=== PATIENT | female | born 1990 | race Caucasian/White ===

== ENCOUNTER 2016-09-14 19:32 | Emergency (ER) | payer OTHER, MEDICAID ==
[2016-09-14 19:51] VITALS: BP 133/80; PULSE 87; RESP 16; TEMP 98.2
[2016-09-14] MEDS ORDERED: IBUPROFEN 600 MG STARTER PACK 4 TAB BTL PO STA (19:51)
--- NOTE | 2016-09-14 20:05 | ED ---
Upper Extremity HPI - General Chief Complaint: Extremity Injury, Upper Stated Complaint: L Wrist Pain - [facility] Time Seen by Provider: 09/14/16 19:40 Source: patient, RN notes reviewed, old records reviewed Mode of arrival: ambulatory Limitations: no limitations - History of Present Illness Initial Comments: Patient is a 26 year old female chief complaint of left wrist pain after tripping over a power cord and falling on outstretched hand. Patient reports that this occurred earlier this afternoon. She reports that the pain mainly started over her thumb area and now she's noticed increased swelling. She states that she has pain with gripping from her left hand. She is left-handed. She denies any peripheral paresthesias. She denies any previous fractures or injuries to the hand. Patient reports that there is difficulty flexing and extension of the wrist due to the swelling and pain.Patient denies any recent fever, chills, shortness of breath, chest pain, back pain, abdominal pain, nausea vomiting, numbness or tingling, dysuria or hematuria, constipation or diarrhea, headaches or visual changes, or any other current symptoms - Related Data Allergies Allergy/AdvReac Type Severity Reaction Status Date / Time No Known Allergies Allergy Verified 09/14/16 19:43 Review of Systems ROS Statement: Those systems with pertinent positive or pertinent negative responses have been documented in the HPI. ROS Other: All systems not noted in ROS Statement are negative. Past Medical History Past Medical History: No Reported History History of Any Multi-Drug Resistant Organisms: None Reported Past Surgical History: No Surgical Hx Reported Past Anesthesia/Blood Transfusion Reactions: No Reported Reaction Past Psychological History: No Psychological Hx Reported Smoking Status: Never smoker Past Alcohol Use History: Rare Past Drug Use History: None Reported - Past Family History Mother Family Medical History: Hypertension, Osteoarthritis (OA) General Exam - General Exam Comments Initial Comments: Pleasant 26-year-old female. No acute distress. Limitations: no limitations General appearance: alert, in no apparent distress Head exam: Present: atraumatic, normocephalic, normal inspection Eye exam: Present: normal appearance, PERRL, EOMI. Absent: scleral icterus, conjunctival injection, periorbital swelling ENT exam: Present: normal exam, mucous membranes moist Neck exam: Present: normal inspection. Absent: tenderness, meningismus, lymphadenopathy Respiratory exam: Present: normal lung sounds bilaterally. Absent: respiratory distress, wheezes, rales, rhonchi, stridor Cardiovascular Exam: Present: regular rate, normal rhythm, normal heart sounds. Absent: systolic murmur, diastolic murmur, rubs, gallop, clicks GI/Abdominal exam: Present: soft, normal bowel sounds. Absent: distended, tenderness, guarding, rebound, rigid Extremities exam: Present: normal inspection, normal capillary refill. Absent: full ROM, tenderness, pedal edema, joint swelling, calf tenderness Left Shoulder Exam: Present: normal inspection, full ROM Upper Arm exam: Present: normal inspection, full ROM Elbow exam: Present: normal inspection, full ROM Forearm Wrist exam: Present: tenderness, swelling (over distal radius and snuff box ), tenderness over anatomical snuff box. Absent: normal inspection ( Significant swelling over the distal wrist. Patient is tender over the anatomical snuffbox.), full ROM Hand Wrist exam: Present: normal inspection. Absent: full ROM, tenderness, swelling Neuro motor exam: Present: wrist extension intact, thumb IP flexion intact. Absent: thumb opposition intact (patient is unable to oppose the person fifth digit. She is able to oppose second through fourth digit.) Neurosensory exam: Present: 2-point discrimination Vascular: Present: normal capillary refill Back exam: Present: normal inspection Neurological exam: Present: alert, oriented X3, CN II-XII intact Psychiatric exam: Present: normal affect, normal mood Skin exam: Present: warm, dry, intact, normal color. Absent: rash Course Vital Signs 09/14/16 19:40 Temperature 98.2 F Pulse Rate 87 Respiratory 16 Rate Blood Pressure 133/80 O2 Sat by Pulse 98 Oximetry Procedures - Orthopedic Splinting/Casting Injury #1 Side: left Upper Extremity Injury Location: wrist Upper Extremity Immobilizer: thumb spica Medical Decision Making - Medical Decision Making Patient is a 26 year old female chief complaint of left wrist pain after tripping over a power cord and falling on outstretched hand. Patient reports that this occurred earlier this afternoon. She reports that the pain mainly started over her thumb area and now she's noticed increased swelling. She states that she has pain with gripping from her left hand. She is left-handed. She denies any peripheral paresthesias. She denies any previous fractures or injuries to the hand. Patient reports that there is difficulty flexing and extension of the wrist due to the swelling and pain. X-rays are reviewed and show no evidence of acute fracture. Patient has significant only tender over the anatomical snuffbox and there is swelling. Patient does have difficulty with thumb opposition of the first and fifth finger. Probable ulna collateral ligamentous tear. Patient was placed in a thumb spica splint. I did advise her to follow-up with orthopedic and take Motrin or Tylenol for pain. Patient agrees with treatment plan will comply. Return parameters were discussed. Disposition Clinical Impression: Left wrist injury Disposition: HOME SELF-CARE Condition: Good Instructions: Wrist Injury (ED), Scaphoid Fracture (ED) Additional Instructions: Rest, ice, and elevate extremity. Keep splint on until cleared by orthopedics in approximately one week. Return to the emergency department if any alarming signs or symptoms occur. Referrals: Essie Henderson MD [STAFF PHYSICIAN] - 1-2 days Benito Richardson DO [Doctor of Osteopathic Medicine] - 1-2 days Time of Disposition: 20:17
--- NOTE | 2016-09-14 20:15 | XR ---
EXAMINATION TYPE: XR hand complete LT DATE OF EXAM: 09/14/2016 8:09 PM COMPARISON: NONE HISTORY: Hand and wrist pain TECHNIQUE: 3 views FINDINGS: I see no fracture nor dislocation. Carpal bones are intact. Metacarpals appear intact. IMPRESSION: Negative left hand exam.
--- NOTE | 2016-09-14 20:16 | XR ---
EXAMINATION TYPE: XR wrist complete LT DATE OF EXAM: 09/14/2016 8:09 PM COMPARISON: NONE HISTORY: Hyperextension injury pain TECHNIQUE: 4 views FINDINGS: I see no fracture nor dislocation. Carpal bones appear intact. Scaphoid appears normal. IMPRESSION: Normal left wrist.
== END 2016-09-14 20:33 | disposition home or self-care (01) ==
LOC: EC 19:32
DX: S69.92XA Unspecified injury of left wrist, hand and finger(s), initial encounter (principal); W01.0XXA Fall on same level from slipping, tripping and stumbling without subsequent striking against object, initial encounter; Y99.0 Civilian activity done for income or pay
CPT/HCPCS: 29125; 99284

== ENCOUNTER 2018-01-06 00:10 | Emergency (ER) | payer MEDICAID ==
[2018-01-06] MEDS ORDERED: KETOTIFEN 0.025% OPHTH DROPS 5 ML BTL BOTH EYES STA (02:34)
[2018-01-06] MEDS ORDERED: LORATADINE 10 MG TAB PO STA (02:35)
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
[2018-01-06 02:53] VITALS: BP 145/64; PULSE 66; RESP 20; TEMP 98.1
== END 2018-01-06 02:55 | disposition home or self-care (01) ==
LOC: EC 00:10
DX: H10.13 Acute atopic conjunctivitis, bilateral (principal)
CPT/HCPCS: 99283

== ENCOUNTER 2018-03-22 08:25 | Emergency (ER) | payer MEDICAID ==
--- NOTE | 2018-03-22 09:04 | ED ---
Female Urogenital HPI - General Chief complaint: Vaginal Bleeding Stated complaint: AND BLEEDING Time Seen by Provider: 03/22/18 08:35 Source: patient, RN notes reviewed Mode of arrival: ambulatory Limitations: no limitations - History of Present Illness Initial comments: This a 27-year-old female presents emergency Department chief complaint of vaginal bleeding in early . Patient states that she is G3 A2 A0 states that she is currently 6 weeks . 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 She states initially she had some light bleeding was not concerned she had this with her last though she started passing large amount of blood yesterday and a few clots. She states she has mild bleeding today and minimal cramping. She denies any diarrhea constipation. She has no dysuria no noted urinary frequency. Last Menstrual Period: 02/01/18 - Related Data Home Medications Medication Instructions Recorded Confirmed No Known Home Medications 03/22/18 03/22/18 Allergies Allergy/AdvReac Type Severity Reaction Status Date / Time No Known Allergies Allergy Verified 03/22/18 08:44 Review of Systems ROS Statement: Those systems with pertinent positive or pertinent negative responses have been documented in the HPI. ROS Other: All systems not noted in ROS Statement are negative. Past Medical History Past Medical History: No Reported History History of Any Multi-Drug Resistant Organisms: None Reported Past Surgical History: No Surgical Hx Reported Past Anesthesia/Blood Transfusion Reactions: No Reported Reaction Past Psychological History: No Psychological Hx Reported Smoking Status: Never smoker Past Alcohol Use History: None Reported Past Drug Use History: None Reported - Past Family History Mother Family Medical History: Hypertension, Osteoarthritis (OA) General Exam Limitations: no limitations General appearance: alert, in no apparent distress Respiratory exam: Present: normal lung sounds bilaterally. Absent: respiratory distress, wheezes, rales, rhonchi, stridor Cardiovascular Exam: Present: regular rate, normal rhythm, normal heart sounds. Absent: systolic murmur, diastolic murmur, rubs, gallop, clicks GI/Abdominal exam: Present: soft, normal bowel sounds. Absent: distended, tenderness, guarding, rebound, rigid Back exam: Absent: CVA tenderness (R), CVA tenderness (L) Skin exam: Present: warm, dry, intact, normal color. Absent: rash Course Vital Signs 10/11/18 10/11/18 08:31 10:16 Temperature 98.5 F 98.4 F Pulse Rate 62 56 L Respiratory 18 17 Rate Blood Pressure 131/78 130/60 O2 Sat by Pulse 100 98 Oximetry Medical Decision Making - Medical Decision Making 27-year-old female presented emergency from for vaginal bleeding early . Patient states that she took multiple tests at home which are positive. Patient has hCG less than 2.4 emergency department. Also was performed which shows no acute process. Patient currently is having menstrual cycle. Patient will be discharged return parameters discussed. - Lab Data Result diagrams: 03/22/18 09:04 Lab Results 03/22/18 03/22/18 03/22/18 Range/Units 09:04 09:04 09:04 WBC 6.8 (3.8-10.6) k/uL RBC 4.58 (3.80-5.40) m/uL Hgb 12.9 (11.4-16.0) gm/dL Hct 37.7 (34.0-46.0) % MCV 82.2 (80.0-100.0) fL MCH 28.1 (25.0-35.0) pg MCHC 34.1 (31.0-37.0) g/dL RDW 12.7 (11.5-15.5) % Plt Count 280 (150-450) k/uL Neutrophils % 70 % Lymphocytes % 21 % Monocytes % 4 % Eosinophils % 3 % Basophils % 1 % Neutrophils # 4.7 (1.3-7.7) k/uL Lymphocytes # 1.4 (1.0-4.8) k/uL Monocytes # 0.3 (0-1.0) k/uL Eosinophils # 0.2 (0-0.7) k/uL Basophils # 0.1 (0-0.2) k/uL HCG, Quant <2.4 mIU/mL Blood Type A Positive Blood Type Recheck No Disposition Clinical Impression: Menstruation Disposition: HOME SELF-CARE Condition: Stable Instructions: Menstruation (ED) Additional Instructions: Please return to the Emergency Department if symptoms worsen or any other concerns. Is patient prescribed a controlled substance at d/c from ED?: No Referrals: None,Stated [Primary Care Provider] - 1-2 days Time of Disposition: 10:53
[2018-03-22 09:33] LABS: Basophils # (A) 0.1 k/uL (0-0.2); Basophils % (A) 1 %; Eosinophils # (A) 0.2 k/uL (0-0.7); Eosinophils % (A) 3 %; HCT 37.7 % (34.0-46.0); HGB 12.9 gm/dL (11.4-16.0); Lymphocytes # (A) 1.4 k/uL (1.0-4.8); Lymphocytes % (A) 21 %; MCH 28.1 pg (25.0-35.0); MCHC 34.1 g/dL (31.0-37.0); MCV 82.2 fL (80.0-100.0); Monocytes # (A) 0.3 k/uL (0-1.0); Monocytes % (A) 4 %; Neutrophils # (A) 4.7 k/uL (1.3-7.7); Neutrophils % (A) 70 %; Platelet Count 280 k/uL (150-450); RBC 4.58 m/uL (3.80-5.40); RDW 12.7 % (11.5-15.5); WBC 6.8 k/uL (3.8-10.6)
--- NOTE | 2018-03-22 09:54 | US ---
EXAMINATION TYPE: Transabdominal DATE OF EXAM: 09/12/17 COMPARISON: NONE CLINICAL HISTORY: Pain. Bleeding EXAM PERFORMED: Transvaginal (TV) and Transabdominal (TA), endovaginal scanning performed for better evaluation of uterus. EXAM MEASUREMENTS: GESTATIONAL AGE / DATING Physician Established: Not yet established Dates by LMP: ( 7 weeks/0 days) EDC: 11/08/2018 Dates by First Scan: No previous this is first scan Dates by Current Scan for: No IUP seen at this time MATERNAL ANATOMY Uterus: 8.1 x 3.8 x 5.1 cm Endometrium: 0.4 cm Right Ovary: 2.9 x 2.1 x 2.5 cm Left Ovary: 3.5 x 1.7 x 2.3 cm Post CDS / Adnexa: wnl Presence of free fluid: No Presence of corpus luteal cyst: No Presence of subchorionic bleed: No GESTATION / SURVEY IUP: No IUP seen at this time Date of LMP: 02/01/2018 Beta HcG (if available): Not available at this time No IUP visualized on this exam. IMPRESSION: No intrauterine gestation is evident. Correlate clinically.
[2018-03-22 11:03] VITALS: BP 117/54; PULSE 59; RESP 18; TEMP 98
== END 2018-03-22 11:02 | disposition home or self-care (01) ==
LOC: EC 08:25
DX: N92.0 Excessive and frequent menstruation with regular cycle (principal)
CPT/HCPCS: 36415; 76801; 76817; 84702; 85025; 86900; 86901; 99284

== ENCOUNTER 2019-08-17 05:53 | Emergency (ER) | payer OTHER, MEDICAID ==
[2019-08-17] MEDS ORDERED: IBUPROFEN 600 MG TAB PO STA (06:04)
[2019-08-17] MEDS ORDERED: HYDROcodone/APAP 5-325MG 1 EACH TAB PO STA (06:05)
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
--- NOTE | 2019-08-17 06:31 | XR ---
EXAMINATION TYPE: XR chest 1V DATE OF EXAM: 08/17/2019 COMPARISON: NONE HISTORY: Chest pain TECHNIQUE: Single view. FINDINGS: Heart is normal. Lungs are clear of infiltrate. There is mild thoracic dextroscoliosis. Costophrenic angles are clear. There is fracture mid shaft left clavicle with 100% displacement. Impression No active cardiopulmonary disease. Normal heart. Left clavicle fracture.
[2019-08-17] MEDS ORDERED: DIPH,PERTUS(ACELL)TETVAC-LF 0.5 ML VIAL IM ONE (06:32)
--- NOTE | 2019-08-17 06:32 | XR ---
EXAMINATION TYPE: XR shoulder complete LT DATE OF EXAM: 08/17/2019 COMPARISON: NONE HISTORY: Pain TECHNIQUE: 2 views FINDINGS: Glenohumeral joint is intact. There is no dislocation. There is mid shaft fracture of the l eft clavicle with 100% superior displacement of the lateral fragment. IMPRESSION: Clavicle fracture. Normal glenohumeral joint.
--- NOTE | 2019-08-17 06:33 | XR ---
EXAMINATION TYPE: XR clavicle LT DATE OF EXAM: 08/17/2019 COMPARISON: NONE HISTORY: Pain TECHNIQUE: 2 views FINDINGS: There is acute mid shaft fracture of the left clavicle. There is 100% superior displacement of the lateral fragment. There is no dislocation. The AC joint space is normal. IMPRESSION: Acute displaced clavicle fracture.
[2019-08-17 06:52] VITALS: BP 121/72; PULSE 16; RESP 72; TEMP 99.2
== END 2019-08-17 07:15 | disposition home or self-care (01) ==
LOC: EC 05:53
DX: S42.022A Displaced fracture of shaft of left clavicle, initial encounter for closed fracture (principal); Z23 Encounter for immunization; V09.20XA Pedestrian injured in traffic accident involving unspecified motor vehicles, initial encounter; Y92.481 Parking lot as the place of occurrence of the external cause
CPT/HCPCS: 90471; 99284; 72170; 73030; 73000; 71045; 90715; L1830

== ENCOUNTER 2024-10-09 09:52 | Emergency (ER) | payer OTHER ==
[2024-10-09 09:57] VITALS: TEMP 98
--- NOTE | 2024-10-09 10:28 | ED ---
Lower Extremity Injury HPI - General Chief Complaint: Extremity Injury, Lower Stated Complaint: R Leg Injury Time Seen by Provider: 10/09/24 10:10 Source: patient, RN notes reviewed Mode of arrival: wheelchair Limitations: no limitations - History of Present Illness Initial Comments: This is a 34-year-old female presenting for right calf pain (5/10) occurring this morning. Patient states [place] the [place] when she heard/felt a "snap/pop" in her right calf, stating she was unable to ambulate following the incident. States pain is worse when standing (9/10). Patient denies distal paresthesia or pallor, lower extremity weakness, other injury. MD Complaint: leg injury Onset/Timin -: hour(s) Injury: Leg: Right (Medial calf) Place: street/outdoors Severity scale (1-10): 9 Improves With: immobilization, rest Worsens With: weight bearing, movement, palpation Context: running Associated Symptoms: snap/pop sensation - Related Data Home Medications Medication Instructions Recorded Confirmed Control (Unknown) 1 tab PO DAILY 10/19/21 10/19/21 Previous Rx's Medication Instructions Recorded Cyclobenzaprine [Flexeril] 10 mg PO TID PRN #15 tab 10/19/21 predniSONE 50 mg PO DAILY #5 tab 10/19/21 Allergies Allergy/AdvReac Type Severity Reaction Status Date / Time No Known Allergies Allergy Verified 10/09/24 09:57 Review of Systems ROS Statement: Those systems with pertinent positive or pertinent negative responses have been documented in the HPI. ROS Other: All systems not noted in ROS Statement are negative. Past Medical History Past Medical History: No Reported History History of Any Multi-Drug Resistant Organisms: None Reported Past Surgical History: No Surgical Hx Reported, Orthopedic Surgery Past Anesthesia/Blood Transfusion Reactions: No Reported Reaction Past Psychological History: No Psychological Hx Reported Smoking Status: Never smoker Past Alcohol Use History: None Reported Past Drug Use History: None Reported - Past Family History Mother Family Medical History: Hypertension, Osteoarthritis (OA) General Exam Limitations: no limitations General appearance: alert, in no apparent distress Head exam: Present: atraumatic, normocephalic, normal inspection Eye exam: Present: normal appearance, PERRL, EOMI. Absent: scleral icterus, conjunctival injection, periorbital swelling ENT exam: Present: normal exam, mucous membranes moist Neck exam: Present: normal inspection. Absent: tenderness, meningismus, lymphadenopathy Respiratory exam: Present: normal lung sounds bilaterally. Absent: respiratory distress, wheezes, rales, rhonchi, stridor Cardiovascular Exam: Present: regular rate, normal rhythm, normal heart sounds. Absent: systolic murmur, diastolic murmur, rubs, gallop, clicks GI/Abdominal exam: Present: soft, normal bowel sounds. Absent: distended, te nderness, guarding, rebound, rigid Extremities exam: Present: normal inspection, full ROM, normal capillary refill. Absent: tenderness, pedal edema, joint swelling, calf tenderness Right Hip exam: Present: normal inspection, full ROM. Absent: tenderness Upper Leg exam: Present: normal inspection, full ROM. Absent: tenderness Knee exam: Present: normal inspection, full ROM. Absent: tenderness Lower Leg exam: Present: tenderness (Positive medial calf tenderness along gastrocnemius without ecchymosis, crepitus, deformity. Negative Tsai test). Absent: swelling, abrasion, laceration, ecchymosis, deformity, crepitus, dislocation, erythema, Homans' sign Ankle exam: Present: normal inspection (Posterior tibialis pulse +2. Achilles tendon intact without tenderness), full ROM Foot/Toe exam: Present: normal inspection (Dorsiflexion/plantarflexion strength 5/5), full ROM Back exam: Present: normal inspection Neurological exam: Present: alert, oriented X3, CN II-XII intact Psychiatric exam: Present: normal affect, normal mood Skin exam: Present: warm, dry, intact, normal color. Absent: rash Course Vital Signs 10/09/24 09:55 Temperature 98.0 F Pulse Rate 63 Respiratory 16 Rate Blood Pressure 154/87 O2 Sat by Pulse 100 Oximetry Procedures - Orthopedic Splinting/Casting Injury #1 Side: right Lower Extremity Injury Location: short leg Lower Extremity Immobilizer: posterior splint Other Orthopedic Equipment: crutches Medical Decision Making - Medical Decision Making Was pt. sent in by a medical professional or institution (, PA, INDEPENDENT LIVING ADVISOR, urgent care, hospital, or fci...) When possible be specific @ -[No] Did you speak to anyone other than the patient for history (EMS, parent, family, police, friend...)? What history was obtained from this source @ -[No] Did you review nursing and triage notes (agree or disagree)? Why? @ -[I reviewed and agree with nursing and triage notes] Were old charts reviewed (outside hosp., previous admission, EMS record, old EKG, old radiological studies, urgent care reports/EKG's, fci records)? Report findings @ -[No old charts were reviewed] Differential Diagnosis (chest pain, altered mental status, abdominal pain women, abdominal pain men, vaginal bleeding, weakness, fever, dyspnea, syncope, headache, dizziness, GI bleed, back pain, seizure, CVA, palpatations, mental health, musculoskeletal)? @ -Differential Musculoskeletal Muscular strain, contusion, ligament sprain, fracture, arthritis, septic arthritis, bursitis, cellulitis, muscle spasm, nerve compression, DVT, arterial occlusion, herpes zoster, electrolyte abnormality, tumor.... This is not meant to be in all inclusive list EKG interpreted by me (3pts min.). @ -Not done X-rays interpreted by me (1pt min.). @ -[None done] CT interpreted by me (1pt min.). @ -[None done] U/S interpreted by me (1pt. min.). @ -[None done] What testing was considered but not performed or refused? (CT, X-rays, U/S, labs)? Why? @ -[None] What meds were considered but not given or refused? Why? @ -[None] Did you discuss the management of the patient with other professionals (professionals i.e. , PA, INDEPENDENT LIVING ADVISOR, lab, RT, psych nurse, social service assistant, psychiatrist, teacher, forest fire control officer, casework specialist)? Give summary @ -[No] Was smoking cessation discussed for >3mins.? @ -[No] Was critical care preformed (if so, how long)? @ -[No] Were there social determinants of health that impacted care today? How? (Homelessness, low income, unemployed, alcoholism, drug addiction, transportation, low edu. Level, literacy, decrease access to med. care, long-term, rehab)? @ -[No] Was there de-escalation of care discussed even if they declined (Discuss DNR or withdrawal of care, Hospice)? DNR status @ -[No] What co-morbidities impacted this encounter? (DM, HTN, Smoking, COPD, CAD, Cancer, CVA, ARF, Chemo, Hep., AIDS, mental health diagnosis, sleep apnea, morbid obesity)? @ -[None] Was patient admitted / discharged? Hospital course, mention meds given and route, prescriptions, significant lab abnormalities, going to OR and other pertinent info. @ -[hospital course] Undiagnosed new problem with uncertain prognosis? @ -[No] Drug Therapy requiring intensive monitoring for toxicity (Heparin, Nitro, Insulin, Cardizem)? @ -[No] Were any procedures done? @ -[No] Diagnosis/symptom? @ -[default] Acute, or Chronic, or Acute on Chronic? @ -Acute Uncomplicated (without systemic symptoms) or Complicated (systemic symptoms)? @ -Uncomplicated Side effects of treatment? @ -[No] Exacerbation, Progression, or Severe Exacerbation? @ -[No] Poses a threat to life or bodily function? How? (Chest pain, [place], [place], pneumonia, PE, COPD, DKA, ARF, appy, cholecystitis, CVA, Diverticulitis, Homicidal, Suicidal, threat to staff... and all critical care pts) @ -[No] Disposition Clinical Impression: Partial Achilles tendon tear Disposition: HOME SELF-CARE Condition: Fair Instructions (If sedation given, give patient instructions): Achilles Tendon Rupture (ED) Additional Instructions: Avoid weight application until you are able to follow-up with orthopedics for further evaluation. Alternate Tylenol/Motrin every 4 hours for pain. Rest, ice, compression, elevation. Is patient prescribed a controlled substance at d/c from ED?: No Referrals: Yanet Thacker MD [Primary Care Provider] - 1-2 days [facility] [Provider Group] - 1-2 days [facility] [Provider Group] - 1-2 days Time of Disposition: 12:04
[2024-10-09] MEDS: ACETAMINOPHEN TAB 500 MG TAB PO STA (10:29)
[2024-10-09] MEDS: IBUPROFEN 800 MG TAB PO STA (10:30)
[2024-10-09] MEDS: LIDOCAINE 4% PATCH TOPICAL ONE (10:30)
--- NOTE | 2024-10-09 11:08 | XR ---
EXAMINATION TYPE: XR tibia fibula RT DATE OF EXAM: 10/09/2024 CLINICAL HISTORY: pain TECHNIQUE: AP and lateral images of the right tibia and fibula are obtained. COMPARISON: None. FINDINGS: There is no acute fracture/dislocation evident. The joint spaces appear within normal cook its. The overlying soft tissue appears unremarkable. IMPRESSION: There is no acute fracture or dislocation seen. ICD 10 NO FRACTURE, INITIAL EVALUATION [facility], , 10/09/2024 11:05 AM
[2024-10-09 12:38] VITALS: BP 136/80; PULSE 68; RESP 20
== END 2024-10-09 12:35 | disposition home or self-care (01) ==
LOC: EC 09:52
DX: S86.011A Strain of right Achilles tendon, initial encounter (principal); X50.9XXA Other and unspecified overexertion or strenuous movements or postures, initial encounter
CPT/HCPCS: 29515; 99283